=== PATIENT | female | born 1960 | race Two or more races ===

== ENCOUNTER 2021-10-11 12:09 | Inpatient (IN) | payer OTHER ==
[~2021-10-11] VITALS: Ht 172.7 cm; Wt 83.8 kg
[2021-10-11] MEDS ORDERED: SODIUM CHLORIDE 0.9% 1,000 ML IV ONE ×2 (12:30)
[2021-10-11] MEDS ORDERED: THIAMINE 100mg/ml INJ (200mg/2ml VIAL) IV ONE (12:30)
[2021-10-11 14:01] LABS: Basophils # (auto) 0.1 10 ^3/uL (0-0.2); Basophils % (auto) 0.9 % (0.0-2.0); Eosinophils # (auto) 0.1 10 ^3/uL (0-0.8); Eosinophils % (auto) 1.9 % (0.0-7.0); Hematocrit 39.6 % (36.0-46.0); Hemoglobin 12.9 g/dL (12.2-16.2); Lymphocytes # (auto) 1.1 10 ^3/uL (0.4-5.4); Lymphocytes % (auto) 15.8 % (10.0-50.0); Mean Corpuscular Hgb Conc. 32.5 g/dL (32.0-36.0); Mean Corpuscular Volume 86.1 fL (80.0-100.0); Monocytes # (auto) 0.8 10 ^3/uL (0-1.3); Monocytes % (auto) 11.6 % (0.0-12.0); Neutrophils # (auto) 5.1 10 ^3/uL (1.6-8.6); Neutrophils % (auto) 69.8 % (37.0-80.0); Red Cell Distribution Width 15.2 % (11.8-14.3); White Blood Cell 7.2 10^3/uL (4.4-10.8)
[2021-10-11 14:26] LABS: Albumin 3.8 g/dL (3.4-5.0); BUN/Creatinine Ratio 23.3; Calcium 8.2 mg/dL (8.5-10.1); Potassium 3.7 mmol/L (3.5-5.1)
[2021-10-11 14:29] LABS: Bilirubin, Total 0.9 mg/dL (0.2-1.0); Total Protein 6.5 g/dL (6.4-8.2)
[2021-10-11] MEDS ORDERED: ACETAMINOPHEN 325 MG TAB PO PRN (15:45)
[2021-10-11] MEDS ORDERED: POLYETHYLENE GLYCOL 17 GM PWDR PO ONE (15:45)
[2021-10-11] MEDS ORDERED: NITROGLYCERIN 0.4 MG SL TAB SL PRN (15:45)
[2021-10-11] MEDS ORDERED: DOCUSATE SOD 100 MG CAP PO PRN (15:45)
[2021-10-11] MEDS ORDERED: MORPHINE SULFATE INJ 2 MG/ml SYRG IV PRN (15:45)
[2021-10-11] MEDS: PANTOPRAZOLE 40 MG/10 ML VIAL INJ IV SCH (16:57)
[2021-10-11] MEDS: chlordiazePOXIDE HCL 25 MG CAP PO SCH ×2 (16:57→23:25)
[2021-10-11] MEDS: FOLIC ACID 1 MG TAB PO SCH (16:57)
[2021-10-11] MEDS: SODIUM CHLOR 0.9% PF (SALINE LOCK) 10ML VIAL/SYR IV SCH (22:26)
[2021-10-11 23:15] VITALS: BP 158/99
[2021-10-11] MEDS ORDERED: LEVO75TA6 PO (23:30)
[2021-10-11] MEDS ORDERED: TRAZ100T3 PO (23:30)
[2021-10-11] MEDS ORDERED: OMEP-260 PO (23:30)
[2021-10-11] MEDS ORDERED: QUET50TA27 PO (23:30)
[2021-10-11] MEDS ORDERED: METO25TA93 PO (23:30)
[2021-10-11] MEDS ORDERED: LORA1TAB23 PO (23:30)
[2021-10-12] MEDS: HYDROmorphone HCL 2 MG/ML VL/or syr IV PRN ×2 (00:07→08:23)
[2021-10-12 05:00] VITALS: BP 146/105
[2021-10-12] MEDS: SODIUM CHLOR 0.9% PF (SALINE LOCK) 10ML VIAL/SYR IV SCH ×3 (05:57→21:57)
[2021-10-12 06:03] LABS: Urine Bacteria NONE SEEN /hpf (None Seen); Urine Blood Negative /uL (Negative); Urine Specific Gravity 1.019 (1.001-1.035); Urine WBC 1 /hpf (0 - 5)
[2021-10-12 06:32] LABS: Alcohol, Urine < 3.0 mg/dL (0-10); Amphetamine Screen, Urine NEGATIVE (NEGATIVE); Barbiturate Scree,Urine NEGATIVE (NEGATIVE); Benzodiazephine Screen, Urine POSITIVE (NEGATIVE); Cannabinoid Screen, Urine NEGATIVE (NEGATIVE); Cocaine Screen, Urine NEGATIVE (NEGATIVE); Opiate Scree,Urine NEGATIVE (NEGATIVE); Phencyclidine Screen, Urine NEGATIVE (NEGATIVE)
[2021-10-12] MEDS: chlordiazePOXIDE HCL 25 MG CAP PO SCH ×3 (06:58→21:57)
[2021-10-12 09:00] VITALS: BP 177/100
[2021-10-12] MEDS: PANTOPRAZOLE 40 MG/10 ML VIAL INJ IV SCH (10:27)
[2021-10-12] MEDS: THIAMINE HCL 100 MG TAB PO SCH (10:27)
[2021-10-12] MEDS: SENNA 8.6 MG TAB PO SCH (10:27)
[2021-10-12] MEDS: FOLIC ACID 1 MG TAB PO SCH (10:27)
[2021-10-12] MEDS: LORazepam 2MG/ML-1ML VIAL IV PRN ×2 (11:57→18:39)
[2021-10-12 13:00] VITALS: BP 150/90
[2021-10-12] MEDS ORDERED: FOLIC ACID 1 MG, MULTIPLE VITAMIN 10 ML, MAGNESIUM SULF SDV 50% 8 MEQ, THIAMINE INJ 100... INJ SCH ×5 (13:28)
[2021-10-12] MEDS ORDERED: METOPROLOL SUCCINATE XL 50 MG TAB PO ONE (16:00)
[2021-10-12] MEDS ORDERED: LOSARTAN POTASSIUM 50 MG TAB PO ONE (16:00)
[2021-10-12 16:45] VITALS: BP 160/99
[2021-10-12] MEDS: SUCRALFATE 1 GM TAB PO SCH ×2 (18:29→21:57)
[2021-10-12 20:48] VITALS: BP 138/84
[2021-10-12] MEDS: HYDROcodone-ACET 5/325MG TAB PO PRN (23:40)
[2021-10-13] MEDS: LORazepam 2MG/ML-1ML VIAL IV PRN ×5 (00:07→20:54)
[2021-10-13 04:04] VITALS: BP 138/85
[2021-10-13] MEDS: HYDROcodone-ACET 5/325MG TAB PO PRN ×2 (04:30→17:51)
[2021-10-13] MEDS: SODIUM CHLOR 0.9% PF (SALINE LOCK) 10ML VIAL/SYR IV SCH ×3 (05:45→22:06)
[2021-10-13 06:09] LABS: Albumin 3.7 g/dL (3.4-5.0); Potassium 3.9 mmol/L (3.5-5.1)
[2021-10-13 06:14] LABS: BUN/Creatinine Ratio 20.8; Bilirubin, Total 0.6 mg/dL (0.2-1.0); Total Protein 7.1 g/dL (6.4-8.2)
[2021-10-13] MEDS: SUCRALFATE 1 GM TAB PO SCH ×4 (06:22→22:06)
[2021-10-13 09:00] VITALS: BP 159/97
[2021-10-13 09:27] LABS: Hepatitis B Surface Antibody Negative (Negative)
[2021-10-13 10:01] LABS: Hepatitis A Total Antibody Negative (Negative)
[2021-10-13 11:19] LABS: Hepatitis C Antibody Negative (Negative)
[2021-10-13] MEDS: chlordiazePOXIDE HCL 25 MG CAP PO SCH ×2 (11:41→22:06)
[2021-10-13] MEDS: THIAMINE HCL 100 MG TAB PO SCH (11:42)
[2021-10-13] MEDS: FOLIC ACID 1 MG TAB PO SCH (11:42)
[2021-10-13] MEDS: PANTOPRAZOLE 40 MG/10 ML VIAL INJ IV SCH (11:42)
[2021-10-13] MEDS: LOSARTAN POTASSIUM 50 MG TAB PO SCH (11:43)
[2021-10-13] MEDS: SENNA 8.6 MG TAB PO SCH (11:43)
[2021-10-13] MEDS: METOPROLOL SUCCINATE XL 50 MG TAB PO SCH (11:44)
[2021-10-13] MEDS ORDERED: FOLIC ACID 1 MG, MULTIPLE VITAMIN 10 ML, MAGNESIUM SULF SDV 50% 8 MEQ, THIAMINE INJ 100... INJ SCH ×5 (12:00)
[2021-10-13 12:10] LABS: INR 0.93 (0.9-1.15)
[2021-10-13 13:00] VITALS: BP 156/113
[2021-10-13 17:00] VITALS: BP 150/95
[2021-10-13 21:22] VITALS: BP 136/91
[2021-10-14] MEDS: LORazepam 2MG/ML-1ML VIAL IV PRN ×5 (01:18→22:06)
[2021-10-14] MEDS: HYDROcodone-ACET 5/325MG TAB PO PRN ×2 (04:35→08:42)
[2021-10-14 05:23] VITALS: BP 145/86
[2021-10-14] MEDS: SODIUM CHLOR 0.9% PF (SALINE LOCK) 10ML VIAL/SYR IV SCH ×3 (06:29→20:50)
[2021-10-14] MEDS: SUCRALFATE 1 GM TAB PO SCH ×4 (06:40→20:50)
[2021-10-14] MEDS ORDERED: chlordiazePOXIDE HCL 25 MG CAP PO SCH (07:00)
[2021-10-14] MEDS: FOLIC ACID 1 MG TAB PO SCH (09:49)
[2021-10-14] MEDS: LOSARTAN POTASSIUM 50 MG TAB PO SCH (09:51)
[2021-10-14] MEDS: THIAMINE HCL 100 MG TAB PO SCH (09:52)
[2021-10-14] MEDS: METOPROLOL SUCCINATE XL 50 MG TAB PO SCH (09:52)
[2021-10-14] MEDS: PANTOPRAZOLE 40 MG TAB PO SCH (09:52)
[2021-10-14] MEDS: SENNA 8.6 MG TAB PO SCH (09:52)
[2021-10-14] MEDS ORDERED: amLODIPine BESYLATE 5 MG TAB PO ONE (11:30)
[2021-10-14] MEDS ORDERED: hydrALAZINE HCL 20 MG/ML VL IV PRN (11:30)
[2021-10-14] MEDS ORDERED: QUEtiapine FUMARATE 100 MG TAB PO ONE (14:45)
[2021-10-14] MEDS ORDERED: LACTULOSE 20Gm/30ML SOLN PO ONE (14:45)
[2021-10-14] MEDS: LACTULOSE 20Gm/30ML SOLN PO SCH (20:50)
[2021-10-14 22:00] VITALS: BP 154/111
[2021-10-14] MEDS ORDERED: traZODone HCL 50 MG TAB PO SCH (22:00)
[2021-10-15] MEDS: LORazepam 0.5 MG TAB PO PRN ×4 (03:49→22:55)
[2021-10-15 05:00] VITALS: BP 141/105
[2021-10-15] MEDS: SODIUM CHLOR 0.9% PF (SALINE LOCK) 10ML VIAL/SYR IV SCH ×3 (06:39→22:54)
[2021-10-15] MEDS: SUCRALFATE 1 GM TAB PO SCH ×4 (06:40→22:54)
[2021-10-15 06:58] LABS: Basophils # (auto) 0 10 ^3/uL (0-0.2); Basophils % (auto) 0.6 % (0.0-2.0); Eosinophils # (auto) 0.2 10 ^3/uL (0-0.8); Hematocrit 41.2 % (36.0-46.0); Hemoglobin 13.9 g/dL (12.2-16.2); Lymphocytes # (auto) 1.4 10 ^3/uL (0.4-5.4); Lymphocytes % (auto) 23.1 % (10.0-50.0); Mean Corpuscular Hemoglobin 29.1 pg (28.0-32.0); Mean Corpuscular Hgb Conc. 33.8 g/dL (32.0-36.0); Mean Corpuscular Volume 85.9 fL (80.0-100.0); Monocytes # (auto) 0.6 10 ^3/uL (0-1.3); Neutrophils # (auto) 3.7 10 ^3/uL (1.6-8.6); Neutrophils % (auto) 62.3 % (37.0-80.0); Nucleated Red Blood Cells % 0.1 %; Red Blood Cells 4.79 10^6/uL (4.0-5.20); Red Cell Distribution Width 14.7 % (11.8-14.3); White Blood Cell 5.9 10^3/uL (4.4-10.8)
[2021-10-15 07:16] LABS: Albumin 3.9 g/dL (3.4-5.0); BUN/Creatinine Ratio 12.2; Calcium 9.1 mg/dL (8.5-10.1)
[2021-10-15 07:18] LABS: Bilirubin, Total 0.3 mg/dL (0.2-1.0); Total Protein 7.2 g/dL (6.4-8.2)
[2021-10-15 09:38] VITALS: BP 148/111
[2021-10-15] MEDS: PANTOPRAZOLE 40 MG TAB PO SCH (09:38)
[2021-10-15] MEDS: amLODIPine BESYLATE 5 MG TAB PO SCH (09:39)
[2021-10-15] MEDS: SENNA 8.6 MG TAB PO SCH (09:39)
[2021-10-15] MEDS: THIAMINE HCL 100 MG TAB PO SCH (09:39)
[2021-10-15] MEDS: METOPROLOL SUCCINATE XL 50 MG TAB PO SCH (09:40)
[2021-10-15] MEDS: FOLIC ACID 1 MG TAB PO SCH (09:40)
[2021-10-15] MEDS: LACTULOSE 20Gm/30ML SOLN PO SCH ×2 (09:41→22:54)
[2021-10-15] MEDS: LOSARTAN POTASSIUM 50 MG TAB PO SCH (09:41)
[2021-10-15] MEDS ORDERED: QUEtiapine FUMARATE 100 MG TAB PO SCH (10:00)
[2021-10-15 12:25] VITALS: BP 125/85
[2021-10-15 17:37] VITALS: BP 134/96
[2021-10-15 22:00] VITALS: BP 139/85
[2021-10-16] MEDS: LORazepam 0.5 MG TAB PO PRN ×5 (04:58→23:05)
[2021-10-16 05:00] VITALS: BP 135/86
[2021-10-16] MEDS: SUCRALFATE 1 GM TAB PO SCH ×4 (06:51→23:05)
[2021-10-16] MEDS: SODIUM CHLOR 0.9% PF (SALINE LOCK) 10ML VIAL/SYR IV SCH ×3 (06:51→23:42)
[2021-10-16 08:18] VITALS: BP 129/78
[2021-10-16] MEDS: ONDANSETRON HCL 4 MG/2 ML VIAL IV PRN ×3 (08:27→17:57)
[2021-10-16] MEDS: FOLIC ACID 1 MG TAB PO SCH (09:21)
[2021-10-16] MEDS: PANTOPRAZOLE 40 MG TAB PO SCH (09:21)
[2021-10-16] MEDS: SENNA 8.6 MG TAB PO SCH (09:21)
[2021-10-16] MEDS: THIAMINE HCL 100 MG TAB PO SCH (09:21)
[2021-10-16] MEDS: amLODIPine BESYLATE 5 MG TAB PO SCH (09:22)
[2021-10-16] MEDS: METOPROLOL SUCCINATE XL 50 MG TAB PO SCH (09:22)
[2021-10-16] MEDS: LOSARTAN POTASSIUM 50 MG TAB PO SCH (09:23)
[2021-10-16] MEDS: LACTULOSE 20Gm/30ML SOLN PO SCH ×2 (09:24→22:00)
[2021-10-16 12:13] VITALS: BP 126/88
[2021-10-16 17:12] VITALS: BP 129/93
[2021-10-16 22:00] VITALS: BP 116/89
[2021-10-17] MEDS: LORazepam 0.5 MG TAB PO PRN ×2 (03:09→07:57)
[2021-10-17 05:00] VITALS: BP 134/79
[2021-10-17] MEDS: SUCRALFATE 1 GM TAB PO SCH (06:21)
[2021-10-17] MEDS: SODIUM CHLOR 0.9% PF (SALINE LOCK) 10ML VIAL/SYR IV SCH (06:21)
[2021-10-17 09:00] VITALS: BP 111/62
== END 2021-10-17 10:00 | disposition left against medical advice (07) | DRG 439 ==
LOC: ER 12:09 → TELE 15:39 → TELE-WESTW 23:00
PROVIDERS: ADMIT Internal Medicine; ATTEND Internal Medicine
DX: K85.90 Acute pancreatitis without necrosis or infection, unspecified (principal); F10.139 Alcohol abuse with withdrawal, unspecified; K70.10 Alcoholic hepatitis without ascites; K70.30 Alcoholic cirrhosis of liver without ascites; F10.120 Alcohol abuse with intoxication, uncomplicated; E86.0 Dehydration; E11.9 Type 2 diabetes mellitus without complications; E78.5 Hyperlipidemia, unspecified; I10 Essential (primary) hypertension; K29.20 Alcoholic gastritis without bleeding; Z91.19 Patient's noncompliance with other medical treatment and regimen; F41.9 Anxiety disorder, unspecified; G89.29 Other chronic pain; R77.8 Other specified abnormalities of plasma proteins; Z20.822 Contact with and (suspected) exposure to COVID-19; F15.10 Other stimulant abuse, uncomplicated; F32.A Depression, unspecified; J43.9 Emphysema, unspecified
CPT/HCPCS: 36415; 71045; 74176; 74181; 76705; 80053; 80307; 80320; 81001; 82140; 83690; 84484; 85025; 85610; 86704; 86706; 86708; 86803; 87040; 87340; 93005; 93306; 96361; 96374; 96375; C9113; G0378; J2405